=== PATIENT | male | born 1970 ===

== ENCOUNTER 2017-09-28 18:18 | Emergency (ER) | payer BC ==
[2017-09-28 18:40] VITALS: BP 127/78; PULSE 75; RESP 16; TEMP 98.3; O2SAT 98
--- NOTE | 2017-09-28 19:08 | ED PDOC ---
HPI: CCC, URI, Sore Throat Time Seen by Provider: 09/28/17 18:46 Chief Complaint (Nursing): ENT Problem Chief Complaint (Provider): left ear pain History Per: Patient History/Exam Limitations: no limitations Onset/Duration Of Symptoms: Other (x 3 weeks) Current Symptoms Are (Timing): Still Present Location Of Pain: Ear(s) (left) Additional Complaint(s): 46-year-old male presents to emergency department with left ear pain for 3 weeks. Pt reports trouble hearing. Pt states ear pain worsened today prompting ED visit. Patient states he was seen 2 weeks ago and was started on antibiotic for ear infection but this did not help the pain. He denies fever, chills. and dizziness. No nausea or vomiting. PMD: no PMD at present Past Medical History Reviewed: Historical Data, Nursing Documentation, Vital Signs Vital Signs: Last Vital Signs Temp 98.3 F 09/28/17 18:37 Pulse 75 09/28/17 18:37 Resp 16 09/28/17 18:37 BP 127/78 09/28/17 18:37 Pulse Ox 98 09/28/17 19:19 - Medical History PMH: Back Problems - Surgical History Surgical History: No Surg Hx - Family History Family History: States: No Known Family Hx - Living Arrangements Living Arrangements: With Family - Social History Current smoker - smoking cessation education provided: No Alcohol: None Drugs: Denies - Home Medications Home Medications: Ambulatory Orders Medication Instructions Recorded predniSONE [predniSONE Tab] 20 mg PO DAILY #12 tab 01/25/17 Carbamide Peroxide [Murine Ear Wax 15 ml OT ASDIR #1 bottle 09/28/17 Removal System] - Allergies Allergies/Adverse Reactions: Allergies Allergy/AdvReac Type Severity Reaction Status Date / Time No Known Allergies Allergy Verified 09/28/17 18:37 Review of Systems ROS Statement: Except As Marked, All Systems Reviewed And Found Negative ENT: Positive for: Ear Pain (left, x 3 weeks) Neurological: Positive for: Headache. Negative for: Dizziness Physical Exam - Reviewed Nursing Documentation Reviewed: Yes Vital Signs Reviewed: Yes - Physical Exam Appears: Positive for: Well, Non-toxic, No Acute Distress Skin: Positive for: Normal Color. Negative for: Rash Eye Exam: Positive for: Normal appearance ENT: Positive for: Other (Left ear: (+) cerumen noted deep in auditory canal with poor visualization of TM. Right Ear: (+) clear) Extremity: Positive for: Normal ROM Neurologic/Psych: Positive for: Alert, Oriented - ECG O2 Sat by Pulse Oximetry: 98 (RA) Pulse Ox Interpretation: Normal Medical Decision Making Medical Decision Makin-year-old male with cerumen impaction Patient will be discharged with Rx for murine ear wax removal drops. Counseling was provided and all questions were answered regarding diagnosis and need for follow up with ear, nose and throat specialist for any persistent symptoms. There is agreement to discharge plan. Return if symptoms persist or worsen. Scribe Attestation: Documented by Norm Askew, acting as a scribe for Sonam Linda PA-C. Provider Scribe Attestation: All medical record entries made by the Scribe were at my direction and personally dictated by me. I have reviewed the chart and agree that the record accurately reflects my personal performance of the history, physical exam, medical decision making, and the department course for this patient. I have also personally directed, reviewed, and agree with the discharge instructions and disposition. Disposition - Clinical Impression Clinical Impression: Impacted cerumen of left ear - Patient ED Disposition Is Patient to be Admitted: No Counseled Patient/Family Regarding: Diagnosis, Need For Followup - Disposition Referrals: Dwight Chinchilla MD [Staff Provider] - Disposition: Routine/Home Disposition Time: 19:06 Condition: STABLE Additional Instructions: Take rx meds as directed. Follow up with ear, nose and throat specialist for any persistent symptoms. Prescriptions: Carbamide Peroxide [Murine Ear Wax Removal System] 15 ml OT ASDIR #1 bottle Instructions: Ear Wax Impaction Forms: [employer] ([employer])
== END 2017-09-28 19:12 | disposition home or self-care (01) ==
LOC: H.ER 18:18
DX: H61.22 Impacted cerumen, left ear (principal)